=== PATIENT | female | born 1960 | race Hispanic/Latino ===

== ENCOUNTER 2018-11-27 23:01 | Emergency (ER) | payer OTHER ==
[~2018-11-27 23:01] MED LIST: ACET1TAB12 PO; BACL10TA PO; DOCU-116 PO; FERR325C PO; FLUTICASONE EN; GABA-531 PO; GLIM1TAB2 PO; LACT1CAP58 PO; LIRA0.6P SQ; LORA1TAB3 PO; METF100P3 PO; MONT10TA24 PO; MULT-1192 PO; NAPR-1023 PO; OMEP-50 PO; SUCR1TAB2 PO
[2018-11-27 23:35] LABS: BASOPHILS % (AUTO) 0.5 % (0.0-5.0); EOSINOPHILS % (AUTO) 1.1 % (0.0-8.0); HEMATOCRIT 41.5 % (36-48); LYMPHOCYTES % (AUTO) 27.2 % (21.0-51.0); MEAN CORPUSCULAR HEMOGLOBIN 27.7 pg (27.0-33.0); MEAN CORPUSCULAR HGB CONC 33.1 g/dL (32.0-36.0); MEAN CORPUSCULAR VOLUME 83.9 fL (79-99); NEUTROPHILS % (AUTO) 66.2 % (40.0-77.0); PLATELET COUNT (AUTO) 290 K/uL (130-400); RED BLOOD CELL COUNT(AUTO) 4.94 MIL/uL (4.00-5.50); RED CELL DISTRIBUTION WIDTH 14.4 % (11.0-15.5); WHITE BLOOD COUNT (AUTO) 12.5 K/uL (4.8-10.8)
[2018-11-27 23:36] LABS: APPEARANCE,URINE Clear (CLEAR); BILIRUBIN,URINE Negative (NEGATIVE); COLOR,URINE Yellow (YELLOW); GLUCOSE, URINE (UA) Negative (NEGATIVE); KETONES,URINE Negative (NEGATIVE); LEUKOCYTE ESTERASE ,URINE Trace (NEGATIVE); NITRATE,URINE Negative (NEGATIVE); OCCULT BLOOD,URINE Trace (NEGATIVE); PH,URINE 6.5 (5.0-8.0); PROTEIN,URINE Negative (NEGATIVE); UROBILINOGEN,URINE 0.2 mg/dL (0.2-1.0)
[2018-11-27 23:47] LABS: POTASSIUM 3.3 mmol/L (3.5-5.1)
[2018-11-27 23:51] LABS: ALBUMIN 3.3 g/dL (3.5-5.0); BILIRUBIN,TOTAL 0.5 mg/dL (0.2-1.0); TOTAL PROTEIN, SERUM 8.2 g/dL (6.0-8.3)
[2018-11-27 23:54] LABS: BACTERIA,URINE Rare /HPF (None Seen); RBC,URINE 0-1 /HPF (0-1)
[2018-11-27] MEDS ORDERED: MORPHINE SULFATE 4 MG/1ML SYG ONE (23:56)
[2018-11-27] MEDS ORDERED: ONDANSETRON HCL 4 MG/2 ML VIAL ONE (23:56)
[2018-11-28] MEDS ORDERED: MORPHINE SULFATE 4 MG/1ML SYG ONE (01:39)
== END 2018-11-28 02:24 | disposition home or self-care (01) ==
LOC: EDH 23:01
DX: K85.90 Acute pancreatitis without necrosis or infection, unspecified (principal); E11.9 Type 2 diabetes mellitus without complications; Z88.5 Allergy status to narcotic agent; Z88.8 Allergy status to other drugs, medicaments and biological substances
CPT/HCPCS: 36415; 74176; 80053; 81001; 82150; 83690; 84484; 85025; 93005; 96374; 96375; 96376; 99285; J2270 ×2; J2405

== ENCOUNTER → 2021-10-01 | Outpatient (CLI) | payer OTHER ==
[~2021-10-01] MED LIST changes: +GLIM1TAB18 PO; -GLIM1TAB2 PO; +MONT-39 PO; -MONT10TA24 PO; -OMEP-50 PO; +OMEP20CA12 PO
== END | disposition home or self-care (01) ==
LOC: RAH 07:28
PROVIDERS: ATTEND Internal Medicine Gastroenterology
DX: R10.10 Upper abdominal pain, unspecified (principal); R11.2 Nausea with vomiting, unspecified; R68.81 Early satiety
CPT/HCPCS: 78264; A9541

== ENCOUNTER → 2023-12-31 | Outpatient (CLI) | payer OTHER ==
[~2023-12-31] MED LIST changes: +ACET-66 PO; -ACET1TAB12 PO; +ALBU8.5H8 IH; +ASCO1TAB46 PO; +ASPI-1114 PO; -BACL10TA PO; +CEFU500T67 PO; +CEPH250T PO; +COLL1CAP PO; +CYCL5TAB PO; -DOCU-116 PO; -FERR325C PO; +FLUT1BLS9 IH; -FLUTICASONE EN; -GABA-531 PO; -GLIM1TAB18 PO; +INSU100I24 SQ; -LACT1CAP58 PO; -LIRA0.6P SQ; -LORA1TAB3 PO; +MELA10TA2 PO; -METF100P3 PO; -NAPR-1023 PO; -OMEP20CA12 PO; +PANT20TA18 PO; +PLEC3TAB2 PO; -SUCR1TAB2 PO; +ZINC220T4 PO; +ared PO
== END | disposition home or self-care (01) ==
LOC: RAH 14:14
PROVIDERS: ATTEND Family Medicine
DX: M19.011 Primary osteoarthritis, right shoulder (principal); M25.711 Osteophyte, right shoulder; M25.411 Effusion, right shoulder; M75.101 Unspecified rotator cuff tear or rupture of right shoulder, not specified as traumatic; M75.21 Bicipital tendinitis, right shoulder
CPT/HCPCS: 73221

== ENCOUNTER → 2024-11-15 | Outpatient (CLI) | payer OTHER ==
[~2024-11-15] MED LIST changes: -CYCL5TAB PO; +CYCL5TAB3 PO
--- NOTE | 2024-11-16 07:32 | HMCIMG ---
EXAMINATION: DUPLEX ULTRASOUND EXAMINATION OF THE BILATERAL LOWER EXTREMITY ARTERIES. CLINICAL HISTORY: Peripheral vascular disease. COMPARISON: None. FINDINGS: Peak systolic velocities within the right lower arteries are as follows: Common femoral artery: 182 cm/s. Superficial femoral artery: 132 cm/s at proximal, 106 cm/s at mid, and 98 cm/s at distal segments. Popliteal artery: 96 cm/s at proximal and 128 cm/s at distal segments. Posterior tibial artery: 93 cm/s. Anterior tibial artery: 72 cm/s. Dorsalis pedis artery: 87 cm/s. The right lower limb arteries demonstrate biphasic waveforms in all arteries. Peak systolic velocities within the left lower arteries are as follows: Common femoral artery: 200 cm/s. Superficial femoral artery: 127 cm/s at proximal, 115 cm/s at mid, and 57 cm/s at distal segments. Popliteal artery: 82 cm/s at proximal and 40 cm/s at distal segments. Posterior tibial artery: 115 cm/s. Anterior tibial artery: 111 cm/s. Dorsalis pedis artery: 54 cm/s. The left lower limb arteries demonstrate biphasic waveforms in all arteries. There is intimal wall thickening in both the lower limb arteries. There is raised velocity in the left common femoral artery. IMPRESSION: Mild intimal wall thickening in both the lower limb arteries. Both lower limb arteries demonstrate biphasic waveforms. No flow limiting lesions. Raised velocity in the bilateral common femoral artery. /Warren
== END | disposition home or self-care (01) ==
LOC: RAH 12:38
PROVIDERS: ATTEND Family Medicine
DX: I73.9 Peripheral vascular disease, unspecified (principal); I77.89 Other specified disorders of arteries and arterioles
CPT/HCPCS: 93925